=== PATIENT | female | born 1960 | race Caucasian/White ===

== ENCOUNTER 2020-02-01 18:39 | Emergency (ER) | payer BC, MEDICAID, OTHER ==
[~2020-02-01] VITALS: Ht 162.6 cm; Wt 67.0 kg
--- NOTE | 2020-02-01 19:20 | NUR ---
Late entry from 1920: Patient presents to ER c/o anxiety and allergic reaction to Lamotrigine. Patient states she has sores in her mouth from the medication and has a headache. Spoke with daughter on the phone; she states patient moved into [place] from [place] last night. She had been taking Clonipine there but ran out. She went through withdrawls and was put on Lamotrigine; she has been on it for approx 3 weeks but stopped it 2-3 days ago. Patient is in NAD. Respirations even and unlabored.
[2020-02-01] MEDS ORDERED: MAALOX/HYOSCYAMINE/LIDOCAINE 45 ML BTL ONE (19:51)
[2020-02-01 19:58] LABS: BASOPHILS # (AUTO) 0.08 x10^3/uL (0-0.1); BASOPHILS % (AUTO) 1 % (0-1); EOSINOPHILS # (AUTO) 0.27 x10^3/uL (0-0.4); EOSINOPHILS % (AUTO) 3 % (1-7); LYMPHOCYTES # (AUTO) 3.73 x10^3/uL (1-3.4); LYMPHOCYTES % (AUTO) 36 % (22-44); MD NO; MEAN CORPUSCULAR HEMOGLOBIN 32.2 pg (27.0-34.8); MEAN CORPUSCULAR HGB CONC 33.5 g/dL (32.4-35.8); MEAN CORPUSCULAR VOLUME 96.2 fL (80-100); MONOCYTES # (AUTO) 0.67 x10^3/uL (0.2-0.8); MONOCYTES % (AUTO) 7 % (2-9); NEUTROPHILS # (AUTO) 5.67 x10^3/uL (1.8-6.8); NEUTROPHILS % (AUTO) 54 % (42-75); PLATELET COUNT 258 x10^3/uL (130-400); RED BLOOD COUNT 4.27 x10^6/uL (3.82-5.3); RED CELL DISTRIBUTION WIDTH 13.3 % (9.6-15.2)
[2020-02-01] MEDS ORDERED: MAALOX/HYOSCYAMINE/LIDOCAINE 45 ML BTL PO ONE (20:00)
[2020-02-01 20:08] LABS: ALANINE AMINOTRANSFERASE 21 U/L (12-78); ALBUMIN 3.2 g/dL (3.4-5.0); ANION GAP 6 mmol/L (5-15); CALCIUM 8.8 mg/dL (8.5-10.1); CHLORIDE 108 mmol/L (98-107); CREATININE 1.03 mg/dL (0.55-1.02)
[2020-02-01 20:11] LABS: ALKALINE PHOSPHATASE 79 U/L (45-117); TOTAL PROTEIN 6.8 g/dL (6.4-8.2)
[2020-02-01 20:17] LABS: BILIRUBIN,TOTAL < 0.1 mg/dL (0.2-1.0)
[2020-02-01 20:26] VITALS: BP 126/68
[2020-02-01] MEDS ORDERED: POTASSIUM CHLORIDE 20 MEQ TAB.ER.PRT PO ONE (20:30)
[2020-02-01] MEDS ORDERED: POTASSIUM CHLORIDE 20 MEQ TAB.ER.PRT ONE (20:37)
--- NOTE | 2020-02-01 20:40 | NUR ---
RESP TIRE SORTER: PT MEDICATED PER DEC. PT RESTING IN [facility] AT THIS TIME;
--- NOTE | 2020-02-01 21:10 | NUR ---
FILM EDITOR SUPERVISOR: PT D/C WITH D/C SUMMARY AND SCRIPTS. ALL QUESTIONS ANSWERED. PT CALLED FOR [facility] AND AMBULATES TO [facility]UL[facility] BAY WITH [facility] FOR D/C HOME. PT DENIES ANY OTHER NEEDS PERTAINING TO THIS VISIT.
== END 2020-02-01 21:14 | disposition home or self-care (01) ==
LOC: ED 20:08
DX: T42.6X5A Adverse effect of other antiepileptic and sedative-hypnotic drugs, initial encounter (principal); R42 Dizziness and giddiness; R51 Headache; I10 Essential (primary) hypertension; Y92.89 Other specified places as the place of occurrence of the external cause
CPT/HCPCS: 36415; 80053; 85025; 93005; 99284

== ENCOUNTER 2020-06-04 15:20 | Observation (INO) | payer BC, MEDICAID ==
[~2020-06-04] VITALS: Ht 162.6 cm; Wt 74.6 kg
[2020-06-04] MEDS ORDERED: ASPIRIN 81 MG TABLET CHEW PO ONE (16:00)
[2020-06-04] MEDS ORDERED: SODIUM CHLORIDE FLUSH 10ML SYR IVF ONE (16:00)
[2020-06-04 16:15] LABS: BASOPHILS # (AUTO) 0.08 x10^3/uL (0-0.1); BASOPHILS % (AUTO) 1 % (0-1); EOSINOPHILS # (AUTO) 0.17 x10^3/uL (0-0.4); EOSINOPHILS % (AUTO) 2 % (1-7); LYMPHOCYTES % (AUTO) 26 % (22-44); MD NO; MEAN CORPUSCULAR HEMOGLOBIN 32.5 pg (27.0-34.8); MEAN CORPUSCULAR HGB CONC 33.5 g/dL (32.4-35.8); MEAN CORPUSCULAR VOLUME 96.8 fL (80-100); MEAN PLATELET VOLUME 8.5 fL (7.4-10.4); MONOCYTES # (AUTO) 0.52 x10^3/uL (0.2-0.8); MONOCYTES % (AUTO) 6 % (2-9); NEUTROPHILS # (AUTO) 6.27 x10^3/uL (1.8-6.8); NEUTROPHILS % (AUTO) 66 % (42-75); PLATELET COUNT 226 x10^3/uL (130-400); RED CELL DISTRIBUTION WIDTH 13.5 % (9.6-15.2)
[2020-06-04 16:26] LABS: ALANINE AMINOTRANSFERASE 35 U/L (12-78); ALBUMIN 3.8 g/dL (3.4-5.0); ANION GAP 7 mmol/L (5-15); CALCIUM 9.1 mg/dL (8.5-10.1); CHLORIDE 107 mmol/L (98-107); CREATININE 0.92 mg/dL (0.55-1.02)
[2020-06-04 16:30] LABS: ALKALINE PHOSPHATASE 84 U/L (45-117); BILIRUBIN,TOTAL 0.2 mg/dL (0.2-1.0); TOTAL PROTEIN 7.7 g/dL (6.4-8.2); TROPONIN I < 0.015 ng/mL (0.000-0.045)
--- NOTE | 2020-06-04 16:33 | NUR ---
PT W/ C/O CHEST PAIN MID STERNAL "PRESSURE ON MY CHEST" REPRODUCIBLE 8/10 C/O SOB X1 MONTH. HX OF ME X3 NSTEMI NO STENTS. PER DAUGHTER WHO IS A NURSE PT HAS 20 LB WEIGHT GAIN. TIGHT SKIN TURGOR. NON PITTING EDEMA. PT C/O ABD FEELING FULL AND BLOATED. HX LIVER DISEASE AND HEAVY DRINKING. PIV EST LABS DRAWN PLAN FOR ADMIT SR ON MONITOR CALL APPIAH IN REACH. NAD.
[2020-06-04] MEDS ORDERED: NITROGLYCERIN SINGLE TAB 0.4 MG SL ONE (16:39)
[2020-06-04] MEDS ORDERED: ASPIRIN 81 MG TABLET CHEW ONE (16:40)
--- NOTE | 2020-06-04 16:44 | NUR ---
meds per dec nitro for pain fam at bedside rechecik. as
[2020-06-04] MEDS ORDERED: MORPHINE SULFATE 4 MG/ML, 1ML ONE (16:54)
[2020-06-04] MEDS ORDERED: SODIUM CHLORIDE FLUSH 10ML SYR IVF PRN (17:00)
[2020-06-04] MEDS ORDERED: MORPHINE SULFATE 4 MG/ML, 1ML IVPush PRN (17:00)
[2020-06-04] MEDS ORDERED: NITROGLYCERIN SINGLE TAB 0.4 MG SL PRN (17:00)
--- NOTE | 2020-06-04 17:22 | NUR ---
HOSPITALIST AT BEDSIDE. REPORT TO LILI Hernandez RN.
--- NOTE | 2020-06-04 17:23 | NUR ---
REPORT OF PT FROM MATHIEU KING AND ASSUMING CARE OF PT AT THIS TIME.
[2020-06-04] MEDS ORDERED: ZOLPIDEM 5MG TABLET PO PRN (18:00)
[2020-06-04] MEDS ORDERED: POLYETHYLENE GLYCOL 17 GM PACKET PO PRN (18:00)
[2020-06-04] MEDS ORDERED: NITROGLYCERIN 0.4 MG BOTTLE (25 TABS) SL PRN (18:00)
[2020-06-04] MEDS ORDERED: MELATONIN 5 MG TABLET PO PRN (18:00)
[2020-06-04] MEDS ORDERED: ACETAMINOPHEN 325 MG TABLET PO PRN (18:00)
[2020-06-04] MEDS ORDERED: GABAPENTIN 300 MG CAPSULE PO PRN (18:00)
[2020-06-04] MEDS ORDERED: POTASSIUM CHLORIDE 40 MEQ in SODIUM CHLORIDE 0.9% 500 ML IV ONE (18:00)
[2020-06-04] MEDS ORDERED: BISACODYL 10 MG SUPP PR PRN (18:00)
[2020-06-04] MEDS ORDERED: ONDANSETRON 2MG/ML, 2ML IVPush PRN (18:00)
[2020-06-04] MEDS ORDERED: ONDANSETRON 2MG/ML, 2ML IVPush ONE (18:00)
[2020-06-04] MEDS ORDERED: NICOTINE 21 MG/24 HR PATCH.TD24 TD SCH (18:00)
[2020-06-04] MEDS ORDERED: hydrALAzine 20 MG/ML, 1ML IVPush PRN (18:00)
[2020-06-04 18:02] LABS: HCT (SEDRATE) 45.7 % (34.6-47.8)
[2020-06-04 18:17] LABS: FREE T4 (FREE THYROXINE) 1.07 ng/dL (0.76-1.46); TROPONIN I < 0.015 ng/mL (0.000-0.045)
--- NOTE | 2020-06-04 19:16 | NUR ---
NO IV PUMPS AVAILABLE IN ED AT THIS TIME FOR IV FLUID ADMINISTRATION. MARCIE, PRECISION INSPECTOR, NOTIFIED. LEIF, POLYSOM TECH, NOTIFIED. MULTIPLE FLOORS CALLED AND NO PUMPS AVAILABLE HOUSE WIDE AT THIS TIME.
[2020-06-04] MEDS ORDERED: HYDR25CA94 PO (19:41)
[2020-06-04] MEDS ORDERED: CLON0.1T2 PO (19:41)
[2020-06-04] MEDS ORDERED: TRAZ-175 PO (19:41)
[2020-06-04] MEDS ORDERED: ZIPR40CA3 PO (19:41)
[2020-06-04] MEDS ORDERED: DULO60CA7 PO (19:41)
[2020-06-04] MEDS ORDERED: CARB-139 PO (19:41)
[2020-06-04] MEDS: HEPARIN 5,000 UNITS/ML, 1ML SQ SCH (19:48)
--- NOTE | 2020-06-04 19:49 | NUR ---
REPORT OF PT TO FLOOR RN. ALL QUESTIONS ANSWERED. PT EDUCATED ON POC AND VERBALIZES UNDERSTANDING. TECH PAGED FOR TRANSPORT OF PT TO FLOOR. PT MEDICATED PER DEC. PT VSS AT THIS TIME.
--- NOTE | 2020-06-04 20:02 | NUR ---
MARKEL AT BS TO TRANSPORT PT FROM ED TO FLOOR.
[2020-06-04 20:33] VITALS: BP 128/82
[2020-06-04] MEDS: HYDROcodone/APAP 5/325 TABLET PO PRN (21:13)
[2020-06-04 23:49] LABS: TROPONIN I < 0.015 ng/mL (0.000-0.045)
[2020-06-05] MEDS: HEPARIN 5,000 UNITS/ML, 1ML SQ SCH ×2 (01:44→10:00)
[2020-06-05 01:50] VITALS: BP 105/71
[2020-06-05] MEDS ORDERED: ASPIRIN 325 MG TABLET EC PO SCH (06:00)
[2020-06-05 06:42] LABS: BASOPHILS # (AUTO) 0.04 x10^3/uL (0-0.1); BASOPHILS % (AUTO) 1 % (0-1); EOSINOPHILS # (AUTO) 0.23 x10^3/uL (0-0.4); EOSINOPHILS % (AUTO) 3 % (1-7); LYMPHOCYTES # (AUTO) 3.19 x10^3/uL (1-3.4); LYMPHOCYTES % (AUTO) 41 % (22-44); MD NO; MEAN CORPUSCULAR HEMOGLOBIN 32.3 pg (27.0-34.8); MEAN CORPUSCULAR HGB CONC 33.5 g/dL (32.4-35.8); MEAN CORPUSCULAR VOLUME 96.6 fL (80-100); MEAN PLATELET VOLUME 8.9 fL (7.4-10.4); MONOCYTES # (AUTO) 0.55 x10^3/uL (0.2-0.8); MONOCYTES % (AUTO) 7 % (2-9); NEUTROPHILS # (AUTO) 3.75 x10^3/uL (1.8-6.8); NEUTROPHILS % (AUTO) 48 % (42-75); PLATELET COUNT 210 x10^3/uL (130-400); RED BLOOD COUNT 4.64 x10^6/uL (3.82-5.3); RED CELL DISTRIBUTION WIDTH 13.2 % (9.6-15.2)
[2020-06-05 06:48] LABS: CHLORIDE 108 mmol/L (98-107)
[2020-06-05 06:56] LABS: ALANINE AMINOTRANSFERASE 38 U/L (12-78); ALBUMIN 3.3 g/dL (3.4-5.0); ALKALINE PHOSPHATASE 72 U/L (45-117); ANION GAP 5 mmol/L (5-15); BILIRUBIN,TOTAL 0.3 mg/dL (0.2-1.0); CALCIUM 8.9 mg/dL (8.5-10.1); CHOLESTEROL, TOTAL 207 mg/dL (140-239); CREATININE 0.85 mg/dL (0.55-1.02); TOTAL PROTEIN 6.9 g/dL (6.4-8.2); TRIGLYCERIDES 273 mg/dL (50-200); VLDL CHOLESTEROL 55 mg/dL (0-25)
[2020-06-05 07:09] VITALS: BP 105/68
[2020-06-05 07:27] LABS: CHOL/HDL RATIO 4.4; HDL CHOL % 23 % (28-40); HDL CHOLESTEROL (DIRECT) 47 mg/dL (40-60); LDL CHOLESTEROL,CALCULATED 105 mg/dL (54-169); LDL/HDL RATIO 2.2 (0.5-3.0)
[2020-06-05] MEDS ORDERED: PANTOPRAZOLE 40MG TABLET PO SCH (07:30)
[2020-06-05] MEDS ORDERED: REGADENOSON 0.4 MG/5 ML SYRINGE ONE (08:17)
[2020-06-05] MEDS ORDERED: DULO60CA7 PO (11:17)
[2020-06-05] MEDS ORDERED: TRAZ-175 PO (11:17)
[2020-06-05] MEDS ORDERED: DULO30CA2 PO (11:17)
[2020-06-05] MEDS ORDERED: CHLO25TA PO (11:17)
[2020-06-05] MEDS ORDERED: SIMV40TA20 PO (11:17)
[2020-06-05] MEDS ORDERED: POTA20TA89 PO (11:17)
[2020-06-05] MEDS ORDERED: ESTR1TAB15 PO (11:17)
[2020-06-05] MEDS ORDERED: CLON-364 PO ×2 (11:17)
[2020-06-05] MEDS ORDERED: MAGN400T9 PO (11:17)
[2020-06-05] MEDS: HYDROcodone/APAP 5/325 TABLET PO PRN ×2 (11:23→12:24)
[2020-06-05 12:47] LABS: TROPONIN I < 0.015 ng/mL (0.000-0.045)
[2020-06-05 13:05] VITALS: BP 129/78
== END 2020-06-05 20:02 | disposition home or self-care (01) ==
LOC: SUATTDRO 17:33 → ED 19:08 → EDIP 19:57 → INTOOBSV 19:57 → EDIP 20:03 → 5SO 20:05
PROVIDERS: ADMIT Hospitalist; ATTEND Hospitalist
DX: R07.9 Chest pain, unspecified (principal); E78.5 Hyperlipidemia, unspecified; E87.6 Hypokalemia; F14.90 Cocaine use, unspecified, uncomplicated; F31.9 Bipolar disorder, unspecified; G62.9 Polyneuropathy, unspecified; I73.9 Peripheral vascular disease, unspecified; R06.01 Orthopnea; I10 Essential (primary) hypertension; I25.2 Old myocardial infarction; Z79.899 Other long term (current) drug therapy
CPT/HCPCS: 36415; 71045; 76700; 78452; 80053; 80061; 83036; 83690; 83880; 84439; 84443; 84484; 85025; 85651; 93005; 93017; 93306; 96365; 96366; 96372; 96375; 99285; A9502; G0378; J1644; J2270; J2405; J2785; J3480; J7040

== ENCOUNTER → 2020-09-30 | Outpatient (CLI) | payer MEDICAID ==
[~2020-09-30] MED LIST: CARB-139 PO; CHLO25TA PO; CLON-364 PO; CLON0.1T2 PO; DULO30CA2 PO; DULO60CA7 PO; ESTR1TAB15 PO; HYDR25CA94 PO; MAGN400T9 PO; POTA20TA89 PO; SIMV40TA20 PO; TRAZ-175 PO; ZIPR40CA3 PO
== END | disposition home or self-care (01) ==
LOC: CFH 13:00
PROVIDERS: ATTEND Nurse Practitioner Family
DX: J98.4 Other disorders of lung (principal); M48.56XA Collapsed vertebra, not elsewhere classified, lumbar region, initial encounter for fracture
CPT/HCPCS: 71250